=== PATIENT | male | born 1960 | race Caucasian/White ===

== ENCOUNTER 2016-08-26 13:29 | Emergency (ER) | payer BC, OTHER ==
[~2016-08-26] VITALS: Ht 175.3 cm; Wt 85.0 kg
[~2016-08-26 13:29] MED LIST: DIOV160T60 PO; DOXY100T PO; LIPI20TA PO; MICO2CRE4 TOP; ZOLO50TA PO
[2016-08-26 13:31] VITALS: BP 174/96; PULSE 54; RESP 20; TEMP 98; O2SAT 95
--- NOTE | 2016-08-26 13:53 | PD ---
HPI Chief Complaint: Laceration/Skin Injury Time Seen by Provider: 13:53 Travel History International Travel<30 days: No Contact w/Intl Traveler<30days: No Traveled to known affect area: No History of Present Illness HPI 56-year-old male with history of hypertension, hypercholesterolemia, leprosy, alcohol use, presents to emergency department for evaluation of a laceration to the right third digit and a left second digit. Patient states his hands got stuck in a graphite grinder at work. Reports significant pain in these digits. Denies any alterations in sensation. No limitations range of motion. He is up-to- date on his tetanus vaccination. No other symptoms to report. PFSH Past Medical History Depression: Yes High Cholesterol: Yes Diminished Hearing: No Hypertension: Yes Past Surgical History Other Surgery: Yes (RIGHT SHOULD SURGERY- FATTY TISSUE REMOVED) Social History Alcohol Use: Yes Tobacco Use: No Substance Use: No Allergies-Medications (Allergen,Severity, Reaction): Coded Allergies: No Known Allergies (Verified , 08/23/15) Reported Meds & Prescriptions Reported Meds & Active Scripts Active Lortab (Hydrocodone-Acetaminophen) 5-325 Mg Tab 1 Tab PO Q6H PRN Ibuprofen 800 Mg Tab 800 Mg PO Q8H PRN Keflex (Cephalexin) 500 Mg Cap 500 Mg PO Q6H 5 Days Reported Sertraline (Sertraline HCl) 100 Mg Tab 100 Mg PO DAILY Valsartan 160 Mg Tab 160 Mg PO DAILY Atorvastatin (Atorvastatin Calcium) 20 Mg Tab 20 Mg PO HS Review of Systems Except as stated in HPI: all other systems reviewed are Neg Physical Exam Narrative GENERAL: Well-nourished, well-developed patient, ambulatory and in no acute distress SKIN: Warm and dry. Abrasion of the distal left second digit with bone exposed. The nails not involved. There is a 2 cm laceration on the volar surface of the distal right second digit. HEAD: Normocephalic. EYES: No scleral icterus. No injection or drainage. NECK: Supple, trachea midline. No JVD or lymphadenopathy. CARDIOVASCULAR: Regular rate and rhythm without murmurs, gallops, or rubs. RESPIRATORY: Breath sounds equal bilaterally. No accessory muscle use. GASTROINTESTINAL: Abdomen soft, non-tender, nondistended. MUSCULOSKELETAL: No cyanosis, or edema. Patient has full flexion-extension. Cap refill within normal limits. 2 point discrimination intact distal right third digit. BACK: Nontender without obvious deformity. No CVA tenderness. Data Data Last Documented VS Vital Signs Date Time Temp Pulse Resp B/P Pulse Ox O2 Delivery O2 Flow Rate FiO2 08/26/16 13:31 98.0 54 20 174/96 95 Room Air Orders Finger ([id number]) (08/26/16 ) Finger ([id number]) (08/26/16 ) Povidone Iodine 10% Oint (Betadine 10% O (08/26/16 14:00) Morphine Inj (Morphine Inj) (08/26/16 14:15) Ondansetron Odt (Zofran Odt) (08/26/16 14:15) Iv Access Insert/Monitor (08/26/16 15:07) Complete Blood Count With Diff (08/26/16 15:07) Basic Metabolic Panel (Bmp) (08/26/16 15:07) Coag Profile (08/26/16 15:07) Cefazolin Inj (Ancef Inj) (08/26/16 15:15) Lidocaine 2% Inj (Xylocaine 2% Inj) (08/26/16 15:15) Bupivacaine Pf 0.5% Inj (Marcaine Pf 0.5 (08/26/16 15:15) Bacitracin Oint (Baciguent Oint) (08/26/16 15:15) Labs Laboratory Tests Test 08/26/16 15:00 White Blood Count 7.1 TH/MM3 Red Blood Count 3.77 MIL/MM3 Hemoglobin 12.9 GM/DL Hematocrit 37.1 % Mean Corpuscular Volume 98.4 FL Mean Corpuscular Hemoglobin 34.3 PG Mean Corpuscular Hemoglobin 34.9 % Concent Red Cell Distribution Width 12.8 % Platelet Count 182 TH/MM3 Mean Platelet Volume 8.9 FL Neutrophils (%) (Auto) 65.9 % Lymphocytes (%) (Auto) 24.3 % Monocytes (%) (Auto) 8.1 % Eosinophils (%) (Auto) 1.0 % Basophils (%) (Auto) 0.7 % Neutrophils # (Auto) 4.7 TH/MM3 Lymphocytes # (Auto) 1.7 TH/MM3 Monocytes # (Auto) 0.6 TH/MM3 Eosinophils # (Auto) 0.1 TH/MM3 Basophils # (Auto) 0.0 TH/MM3 CBC Comment DIFF FINAL Differential Comment Prothrombin Time 10.4 SEC Prothromb Time International 0.9 RATIO Ratio Activated Partial 21.9 SEC Thromboplast Time Sodium Level 143 MEQ/L Potassium Level 4.4 MEQ/L Chloride Level 108 MEQ/L Carbon Dioxide Level 26.0 MEQ/L Anion Gap 9 MEQ/L Blood Urea Nitrogen 8 MG/DL Creatinine 0.74 MG/DL Estimat Glomerular Filtration 109 ML/MIN Rate Random Glucose 86 MG/DL Calcium Level 8.5 MG/DL MDM Medical Decision Making Medical Screen Exam Complete: Yes Emergency Medical Condition: Yes Medical Record Reviewed: Yes Differential Diagnosis Laceration superficial versus deep versus open fracture versus abrasion versus avulsion versus amputation Narrative Course 56-year-old male presents to the department for evaluation of right third digit laceration and left second digit amputation of the distal digit sustained from a graphite grinder at work today. Last Impressions Finger X-Ray 08/26/16 0000 Signed Impressions: Service Date/Time: Friday, August 26, 2016 14:15 - CONCLUSION: Soft tissue amputation at the distal aspect of the second digit. There is also a comminuted tuft fracture of the distal phalanx. Multiple small osseous densities are present within the soft tissues of the distal second digit and represent bone fragments. No metallic foreign body is visualized. Prashanth Lr MD Finger X-Ray 08/26/16 0000 Signed Impressions: Service Date/Time: Friday, August 26, 2016 14:22 - CONCLUSION: Fractured distal phalanx of the right third finger. Jorge Alberto Smith MD I discussed the patient with Dr. Hagan who reviewed the films. I have sent him pictures. Patient is given IV antibiotics. He will be at bedside for repair. A digital block was complete. Following Dr. Hagan's repair, patient is discharged home with pain control, antibiotics, and instructions to follow-up with Dr. Socorro melara. Procedures Procedure Narrative Verbal consent was obtained prior to procedure. 0.5% bupivacaine and 2% lidocaine were used for digital block of right third digit. The digit was prepped with Betadine. A total of 5 mL was used to obtain adequate anesthesia. Verbal consent was obtained prior to procedure. 0.5% bupivacaine and 2% lidocaine were used for digital block of left second digit digit. The digit was prepped with Betadine. A total of 5 mL was used to obtain adequate anesthesia. Digits remain neurovascularly intact. Patient tolerated well. Diagnosis Primary Impression: Open fracture of phalanx of right middle finger Qualified Code: S62.662B - Open nondisplaced fracture of distal phalanx of right middle finger, initial encounter Additional Impression: Amputation of left index finger Referrals: Michael Hagan MD Primary Care Physician Patient Instructions: Acute Wound Care (ED), Finger Fracture (ED), General Instructions Departure Forms: Tests/Procedures, Work Release Special Instructions: return when cleared by hand specialist Additional Instructions: Keep the area clean and dry Elevate to reduce pain and swelling Follow-up with Dr. Hagan in 2 days. Contact his office tomorrow for an appointment Return immediately to the emergency department with any acute worsening of symptoms Med/Other Pt SpecificInfo: Prescription(s) given Scripts Hydrocodone-Acetaminophen (Lortab)5-325 Mg Tab1 Tab PO Q6H PRN (PAIN GREATER THAN 6) #15 TAB Ref 0 Prov:Chyna Verduzco MD 08/26/16 Ibuprofen 800 Mg [id number] Mg PO Q8H PRN (Pain/Inflammation) #30 TAB Ref 0 Prov:Mary Greenberg 08/26/16 Cephalexin (Keflex)500 Mg [id number] Mg PO Q6H 5 Days Ref 0 Prov:Mary Greenberg 08/26/16 Disposition: 01 DISCHARGE HOME Condition: Stable Mary Greenberg Aug 26, 2016 13:53
[2016-08-26] MEDS ORDERED: POVIDONE IODINE 10% OINT 30 GM TUBE TOPICAL ONE (14:00)
[2016-08-26] MEDS ORDERED: VALS1TAB65 PO (14:10)
[2016-08-26] MEDS ORDERED: SERT-129 PO (14:10)
[2016-08-26] MEDS ORDERED: ATOR20TA15 PO (14:10)
[2016-08-26] MEDS ORDERED: ONDANSETRON ODT 4 MG TAB PO ONE (14:15)
[2016-08-26] MEDS ORDERED: MORPHINE SULFATE 4 MG/ML INJ IM ONE (14:15)
--- NOTE | 2016-08-26 14:46 | RADRPT ---
EXAM DATE/TIME: 08/26/2016 14:15 [facility] COMPARISON: No previous studies available for comparison. 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 MEDICAL HISTORY : None. SURGICAL HISTORY : Right wrist fracture repair. ENCOUNTER: Initial ACUITY: 1 day PAIN SCORE: 6/10 LOCATION: Left distal second finger FINDINGS: 3 views of the left hand second digit demonstrate absence of the soft tissue at the tip of the second digit. There is also a fracture through the distal phalangeal tuft with small osseous densities in t he adjacent soft tissue which likely represent bone fragments. No metallic foreign body is visualized . The remaining left hand structures demonstrate no acute finding. CONCLUSION: Soft tissue amputation at the distal aspect of the second digit. There is also a comminuted tuft frac ture of the distal phalanx. Multiple small osseous densities are present within the soft tissues of t he distal second digit and represent bone fragments. No metallic foreign body is visualized. Prashanth Lr MD on August 26, 2016 at 14:43 Board Certified Radiologist. This report was verified electronically.
--- NOTE | 2016-08-26 14:51 | RADRPT ---
EXAM DATE/TIME: 08/26/2016 14:22 [facility] COMPARISON: No previous studies available for comparison. INDICATIONS : Right third finger laceration. 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 MEDICAL HISTORY : None. SURGICAL HISTORY : right wrist fracture repair. ENCOUNTER: Initial ACUITY: 1 day PAIN SCORE: 6/10 LOCATION: Right distal 3rd finger FINDINGS: Examination of the third digit of the right hand demonstrates a fracture of the distal phalanx across the nail bed. Structures are otherwise intact. Screw is identified in the navicular carpal bone from previous ORIF. CONCLUSION: Fractured distal phalanx of the right third finger. Jorge Alberto Smith MD on August 26, 2016 at 14:47 Board Certified Radiologist. This report was verified electronically.
[2016-08-26] MEDS ORDERED: BUPIVACAINE HCL PF 0.5% 10 ML VIAL INFIL ONE (15:15)
[2016-08-26] MEDS ORDERED: BACITRACIN TOP OINT 15 GM TUBE TOP ONE (15:15)
[2016-08-26] MEDS ORDERED: LIDOCAINE HCL 2% 20 ML VIAL INFIL ONE (15:15)
[2016-08-26 15:43] LABS: AUTOMATED NEUTROPHIL # 4.7 TH/MM3 (1.8-7.7); BASOPHIL % 0.7 % (0.0-2.0); EOSINOPHIL # 0.1 TH/MM3 (0-0.4); HEMATOCRIT 37.1 % (39.0-51.0); HEMO FLAGS DIFF FINAL; LYMPH % 24.3 % (9.0-44.0); LYMPHOCYTE # 1.7 TH/MM3 (1.0-4.8); MEAN CELL VOLUME 98.4 FL (80.0-100.0); MEAN CORPUSCULAR HEMOGLOBIN 34.3 PG (27.0-34.0); MEAN CORPUSCULAR HGB CONC 34.9 % (32.0-36.0); MONO % 8.1 % (0.0-8.0); NEUT % 65.9 % (16.0-70.0); PLATELET COUNT 182 TH/MM3 (150-450); RED BLOOD COUNT 3.77 MIL/MM3 (4.50-5.90); RED CELL DISTRIBUTION WIDTH 12.8 % (11.6-17.2); WHITE BLOOD COUNT 7.1 TH/MM3 (4.0-11.0)
[2016-08-26 15:47] LABS: APTT (PATIENT) 21.9 SEC (24.3-30.1); INTERNATIONAL NORMALIZED RATIO 0.9 RATIO; PROTHROMBIN TIME - PATIENT 10.4 SEC (9.8-11.6)
[2016-08-26 16:12] LABS: POTASSIUM 4.4 MEQ/L (3.5-5.1)
[2016-08-26] MEDS ORDERED: HYDR-3533 PO (17:08)
[2016-08-26] MEDS ORDERED: IBUP800T23 PO (17:08)
[2016-08-26] MEDS ORDERED: CEPH-460 PO (17:08)
--- NOTE | 2016-08-26 21:53 | MB ---
cc: CORNELIA SINGH MD DATE OF CONSULTATION 08/26/2016 REASON FOR CONSULTATION Laceration left index finger and right middle finger. HISTORY OF THE PRESENT ILLNESS The patient is a 56-year-old right-hand dominant male who presented ED with laceration to the left index finger and right middle finger a few hours ago. The patient states his finger got sucked into the mash grinder resulting in laceration to the fingers. The patient complains of pain and bleeding over the region. Complains of laceration over the right middle finger pulp and a minor laceration over the right ring finger. He also complains of laceration involving the left index finger. The patient also complains of bleeding from the region. Denies any numbness distal to the laceration involving the right middle finger. PAST MEDICAL AND SURGICAL HISTORY Are noted. PHYSICAL EXAMINATION EXTREMITIES: Left index finger reveals a transverse laceration / partial amputation through the hyponychium with exposed distal phalanx tip. The laceration measuring about 1 cm in diameter. Nail bed appears to be intact. Evidence of bleeding from the region noted. There is also oozing from the exposed distal phalanx. He is able to actively flex and extend the DIP joint of the index finger. Examination of right middle finger reveals a laceration in a transverse fashion involving the pulp with another laceration over the dorsal aspect of the eponychial skin fold. The laceration measures about 2 cm in transverse diameter. He has intact capillary refill distal to the laceration. He also has intact distal sensation. The patient had a digital block during my examination but according to ED notes he had intact sensation distal to the laceration. He is able to actively flex and extend the DIP joint of the right middle finger. Minor laceration noted over the pulp of the right ring finger. X-rays of the left index finger reveal fracture through the distal tuft of the left end distal phalanx. And x-rays of the right middle finger show a fracture through the shaft of the distal phalanx with no displacement. ASSESSMENT A 56-year-old male with open fracture of right middle finger with a transverse laceration over the pulp and partial amputation through the hyponychium with exposed distal phalanx left index finger. PLAN The plan will be to suture the laceration of the right middle finger and to cover the exposed distal phalanx with soft tissue. The risks and benefits of the procedure were explained to the patient. We will proceed with a bedside procedure. This will be dictated in a separate op note. The patient has been advised to keep the part elevated. Dressings were applied. He will be discharged home on p.o. antibiotics and pain medication. I will see him in my office in two days' time for wound reassessment. Cornelia Singh MD SE/SHABANA /5:10 PM /9:10 PM [facility]
--- NOTE | 2016-08-27 11:49 | MP ---
cc: CORNELIA SINGH MD DATE OF SURGERY August 26, 2016 PREOPERATIVE DIAGNOSES 1. Open fracture distal phalanx right middle finger with a transverse laceration. 2. Partial amputation through the hyponychium left index finger. POSTOPERATIVE DIAGNOSES 1. Open distal phalanx fracture with laceration right middle finger pulp. 2. Partial amputation through the hyponychium left index finger. PROCEDURE 1. Wash, repair of laceration right middle finger. 2. Wash and coverage of soft tissue over the distal phalanx left index finger. SURGEON Dr. Singh. ANESTHESIA Local with 2% lidocaine and 0.25% Marcaine. ESTIMATED BLOOD LOSS Minimal. INDICATIONS The patient is a 56-year-old male who presented to the ED with laceration to the right middle finger and left index finger in a grinding machine. He had a transverse laceration over the pulp of the right middle finger and x-ray showed fracture through the shaft of the right middle finger distal phalanx. On the left index finger he had partial amputation through the hyponychium with exposed distal phalanx. X-ray showed distal tuft fracture. He was consented for repair of laceration right middle finger and coverage of bone left index finger. The right hand was thoroughly prepped and draped. Thorough wash was given using normal saline and a digital block. The laceration was sutured using 4-0 chromic catgut in a horizontal mattress interrupted fashion. Multiple sutures were applied. Xeroform and bacitracin dressing applied, finger dressing was applied and a splint was applied. Attention was then directed to the left index finger. Under digital block, thorough wash of the wound was carried out. The exposed distal phalanx tip was rongeured for a few mm; this was then followed by coverage of soft tissue over the exposed distal phalanx with multiple interrupted 5-0 Vicryl stitches. Finger cot tourniquet was used for 10 minutes which was removed at the end of the procedure. He had good distal circulation. The rest of the wound will be allowed to heal by secondary intention. Xeroform and bacitracin dressing were applied. Bulky hand dressing was applied which was held in place by a Dixie. The patient tolerated the procedure well. He will follow up with me in two days' time for a dressing change. He will be discharged home on Keflex. MD NABIL Whitley /5:14 PM /11:41 AM [facility]
== END 2016-08-26 17:28 | disposition home or self-care (01) ==
LOC: NEPB 13:29
DX: S68.121A Partial traumatic metacarpophalangeal amputation of left index finger, initial encounter (principal); S62.632B Displaced fracture of distal phalanx of right middle finger, initial encounter for open fracture; I10 Essential (primary) hypertension; W31.89XA Contact with other specified machinery, initial encounter; Y99.0 Civilian activity done for income or pay
CPT/HCPCS: 12042; 73140; 80048; 85025; 85610; 85730; 96365; 96372; 99283; J0690; J2270